=== PATIENT | male | born 1980 | race Hispanic/Latino ===

== ENCOUNTER 2018-06-03 12:10 | Emergency (ER) | payer BC, OTHER ==
--- NOTE | 2018-06-03 13:24 | RAD ---
THREE VIEWS LEFT FOOT: Indication: Left great toe pain. Comparison: None. FINDINGS: There is mild osteoarthritic change involving the great toe MTP joint. There is a small sized bunion. Lisfranc alignment is preserved. No acute fracture is evident. IMPRESSION: 1. Mild great toe MTP osteoarthrosis. 2. Small sized bunion. POS: [facility]
== END 2018-06-03 14:30 | disposition home or self-care (01) ==
LOC: ERS 12:10
DX: M79.675 Pain in left toe(s) (principal); L60.8 Other nail disorders

== ENCOUNTER 2018-07-27 15:19 | Emergency (ER) | payer BC, SELFPAY ==
[2018-07-27] MEDS ORDERED: Adacel (T-DAP) 0.5 ML SYRINGE ONE (15:39)
== END 2018-07-27 15:49 | disposition home or self-care (01) ==
LOC: ERS 15:19
DX: S61.551A Open bite of right wrist, initial encounter (principal); W54.0XXA Bitten by dog, initial encounter
CPT/HCPCS: 90471; 90715

== ENCOUNTER 2019-12-16 10:22 | Outpatient (CLI) | payer OTHER ==
--- NOTE | 2019-12-16 10:34 | RAD ---
Exam:Right hip 2 views HISTORY: Pain COMPARISON: None FINDINGS: Preserved joint space height. No fractures. IMPRESSION: No significant degenerative change.
== END 2019-12-16 10:23 | disposition home or self-care (01) ==
LOC: BICRAD 10:22
PROVIDERS: ATTEND Nurse Practitioner Family
DX: M25.551 Pain in right hip (principal)